=== PATIENT | male | born 1975 | race Caucasian/White ===

== ENCOUNTER 2017-07-28 12:36 | Emergency (ER) | payer OTHER ==
[~2017-07-28] VITALS: Ht 190.5 cm; Wt 130.9 kg
[2017-07-28 12:39] VITALS: BP 124/79; TEMP 97.8
[2017-07-28 14:45] LABS: BASO % 0.6 % (0.0-2.0); EOS % 0.8 % (0-4.0); GRAN # 1.8 (1.4-6.5); GRAN % 35.5 % (42.2-75.2); HEMOGLOBIN 14.3 g/dl (13.5-18.0); LYMPH # 2.1 (1.2-3.4); LYMPH % 42.9 % (20.0-51.0); MEAN CELL VOLUME 89 fl (80.0-100.0); MEAN CORPUSCULAR HEMOGLOBIN 30 pg (27.0-31.0); MEAN CORPUSCULAR HGB CONC 33 g/dl (33.0-37.0); MEAN PLATELET VOLUME 9.2 fl (7.4-10.4); PLATELET COUNT 259 K/mm3 (130-400); RED BLOOD COUNT 4.83 M/mm3 (4.20-5.60); REDCELL DISTRIBUTION WIDTH-CV 12.5 % (11.5-14.5)
[2017-07-28 14:47] LABS: INR 1.1 (0.8-3.0); PROTHROMBIN TIME 12.4 SECONDS (9.7-12.8)
[2017-07-28 14:57] LABS: ALANINE AMINOTRANSFERASE 53 U/L (21-72); ALBUMIN 4.1 gm/dL (3.5-5.0); ALKALINE PHOSPHATASE 69 U/L (50-136); ANION GAP 8 mmol/L (7-16); AST,SGOT 44 U/L (15-37); BILIRUBIN,TOTAL 0.3 mg/dL (0.0-1.0); BLOOD UREA NITROGEN 13 mg/dL (9-20); CALCIUM 9.1 mg/dL (8.4-10.2); CARBON DIOXIDE 27 mmol/L (22-30); CHLORIDE 103 mmol/L (98-107); CREATININE, serum 0.94 mg/dL (0.66-1.25); GLUCOSE 82 mg/dL (74-106); SODIUM 138 mmol/L (137-145); TOTAL PROTEIN 7.4 gm/dL (6.4-8.2)
[2017-07-28 15:00] VITALS: PULSE 74
[2017-07-28 15:10] LABS: TROPONIN-I < 0.012 ng/mL (0.000-0.034)
== END 2017-07-28 15:08 | disposition home or self-care (01) ==
LOC: COL.ER 12:36
PROVIDERS: Emergency Medicine
DX: R05 Cough (principal); R07.9 Chest pain, unspecified; R50.9 Fever, unspecified; R09.89 Other specified symptoms and signs involving the circulatory and respiratory systems; R06.02 Shortness of breath; Z86.711 Personal history of pulmonary embolism; I48.91 Unspecified atrial fibrillation; D68.2 Hereditary deficiency of other clotting factors
CPT/HCPCS: J7030; Q9967

== ENCOUNTER → 2017-07-28 | Outpatient (CLI) | payer OTHER | LOC: COL.LAB 10:12 | DX: J06.9 Acute upper respiratory infection, unspecified (principal); Z86.2 Personal history of diseases of the blood and blood-forming organs and certain disorders involving the immune mechanism ==

== ENCOUNTER → 2018-09-03 | Emergency (ER) | payer OTHER ==
[~2018-09-03] VITALS: Ht 190.5 cm; Wt 129.5 kg
[~2018-09-03] MED LIST: ASPIRIN 81M81 MG/TA2 PO; IBU800 M1 PO; LIORESAL 1010 MG/TAB PO; MULTI VITAMINS1 TAB PO; TIAZAC120 MG PO; TOPROL XL 25MG25 MG PO; XARELTO20 MG PO
[2018-09-03 00:19] VITALS: TEMP 97.8
[2018-09-03 00:50] LABS: PROTHROMBIN TIME 11.6 SECONDS (9.7-12.8)
[2018-09-03 00:51] LABS: ALANINE AMINOTRANSFERASE 55 U/L (21-72); ALBUMIN 4.4 gm/dL (3.5-5.0); ALKALINE PHOSPHATASE 77 U/L (50-136); ANION GAP 11 mmol/L (7-16); AST,SGOT 46 U/L (15-37); BILIRUBIN,TOTAL 0.5 mg/dL (0.0-1.0); BLOOD UREA NITROGEN 16 mg/dL (9-20); CALCIUM 9.9 mg/dL (8.4-10.2); CARBON DIOXIDE 27 mmol/L (22-30); CHLORIDE 100 mmol/L (98-107); CREATININE, serum 1.01 mg/dL (0.66-1.25); GLUCOSE 95 mg/dL (74-106); MAGNESIUM 1.8 mg/dL (1.6-2.3); POTASSIUM 3.7 mmol/L (3.4-5.0); SODIUM 138 mmol/L (137-145); TOTAL PROTEIN 7.9 gm/dL (6.4-8.2)
[2018-09-03 00:53] LABS: PARTIAL THROMBOPLASTIN TIME 29.7 SECONDS (26.0-37.0)
[2018-09-03 01:06] LABS: HEMATOCRIT 44.5 % (42.0-52.0); HEMOGLOBIN 14.8 g/dl (13.5-18.0); MEAN CELL VOLUME 90 fl (80.0-100.0); MEAN CORPUSCULAR HEMOGLOBIN 30 pg (27.0-31.0); MEAN CORPUSCULAR HGB CONC 33 g/dl (33.0-37.0); MEAN PLATELET VOLUME 9.2 fl (7.4-10.4); PLATELET COUNT 346 K/mm3 (130-400); RED BLOOD COUNT 4.94 M/mm3 (4.20-5.60); REDCELL DISTRIBUTION WIDTH-CV 12.8 % (11.5-14.5)
[2018-09-03 01:14] LABS: TROPONIN-I < 0.012 ng/mL (0.000-0.035)
[2018-09-03 01:20] LABS: EOSINOPHIL 3 % (0-4); LYMPHOCYTE 33 % (20.0-51.0); NEUTROPHILS 51 % (42.0-75.2); PLATELET ESTIMATE NORMAL (NORMAL)
[2018-09-03 03:25] VITALS: BP 104/79; PULSE 75
== END ==
LOC: COL.ER 00:16
PROVIDERS: Emergency Medicine
DX: I48.91 Unspecified atrial fibrillation (principal); Z86.711 Personal history of pulmonary embolism; Z86.718 Personal history of other venous thrombosis and embolism
CPT/HCPCS: J2704; J7030; Q9967

== ENCOUNTER 2018-09-14 23:20 | Emergency (ER) | payer OTHER ==
[~2018-09-14] VITALS: Ht 190.5 cm; Wt 129.5 kg
[~2018-09-14 23:20] MED LIST changes: -IBU800 M1 PO; -LIORESAL 1010 MG/TAB PO; -TIAZAC120 MG PO
[2018-09-14 23:29] VITALS: TEMP 97.6
[2018-09-15 00:14] LABS: BASO # 0.1 (0.0-0.2); BASO % 0.8 % (0.0-2.0); EOS # 0.4 (0.0-0.7); EOS % 3.7 % (0-4.0); GRAN # 5.1 (1.4-6.5); GRAN % 48.1 % (42.2-75.2); HEMATOCRIT 42.4 % (42.0-52.0); HEMOGLOBIN 14.3 g/dl (13.5-18.0); LYMPH # 3.7 (1.2-3.4); LYMPH % 34.8 % (20.0-51.0); MEAN CELL VOLUME 89 fl (80.0-100.0); MEAN CORPUSCULAR HEMOGLOBIN 30 pg (27.0-31.0); MEAN CORPUSCULAR HGB CONC 34 g/dl (33.0-37.0); MEAN PLATELET VOLUME 9.1 fl (7.4-10.4); MONO # 1.3 (0.1-0.6); MONO % 11.9 % (1.7-9.3); PLATELET COUNT 304 K/mm3 (130-400); RED BLOOD COUNT 4.77 M/mm3 (4.20-5.60); REDCELL DISTRIBUTION WIDTH-CV 12.7 % (11.5-14.5)
[2018-09-15] MEDS ORDERED: IBU800 M1 PO (00:16)
[2018-09-15] MEDS ORDERED: LIORESAL 1010 MG/TAB PO (00:18)
[2018-09-15 00:26] LABS: BILIRUBIN,TOTAL 0.1 mg/dL (0.0-1.0); CALCIUM 9.8 mg/dL (8.4-10.2); CREATININE, serum 0.92 mg/dL (0.66-1.25); POTASSIUM 3.7 mmol/L (3.4-5.0); TOTAL PROTEIN 7.4 gm/dL (6.4-8.2)
[2018-09-15 00:28] LABS: INR 2.5 (0.8-3.0); PROTHROMBIN TIME 27.9 SECONDS (9.7-12.8)
[2018-09-15] MEDS ORDERED: TIAZAC120 MG PO (00:58)
[2018-09-15 01:16] LABS: TSH w REFLEX 6.04 uIU/mL (0.465-4.680)
[2018-09-15 02:27] VITALS: BP 106/82; PULSE 92
== END 2018-09-15 02:31 | disposition home or self-care (01) ==
LOC: COL.ER 23:20
PROVIDERS: Emergency Medicine
DX: I48.0 Paroxysmal atrial fibrillation (principal)
CPT/HCPCS: J7030

== ENCOUNTER 2018-11-29 04:15 | Emergency (ER) | payer OTHER ==
[~2018-11-29] VITALS: Ht 190.5 cm; Wt 129.5 kg
[~2018-11-29 04:15] MED LIST changes: +IBU800 M1 PO; +LIORESAL 1010 MG/TAB PO; +TIAZAC120 MG PO
[2018-11-29 04:25] VITALS: TEMP 97.5
[2018-11-29] MEDS ORDERED: TOPROL XL 50MG50 MG PO (04:28)
[2018-11-29 04:33] LABS: HEMATOCRIT 46.5 % (42.0-52.0); HEMOGLOBIN 15.5 g/dl (13.5-18.0); MEAN CELL VOLUME 89 fl (80.0-100.0); MEAN CORPUSCULAR HEMOGLOBIN 30 pg (27.0-31.0); MEAN CORPUSCULAR HGB CONC 33 g/dl (33.0-37.0); MEAN PLATELET VOLUME 9.1 fl (7.4-10.4); PLATELET COUNT 349 K/mm3 (130-400); REDCELL DISTRIBUTION WIDTH-CV 12.5 % (11.5-14.5)
[2018-11-29 04:46] LABS: ALANINE AMINOTRANSFERASE 42 U/L (21-72); ALBUMIN 4.1 gm/dL (3.5-5.0); ALKALINE PHOSPHATASE 74 U/L (50-136); ANION GAP 11 mmol/L (7-16); AST,SGOT 39 U/L (15-37); BILIRUBIN,TOTAL 0.3 mg/dL (0.0-1.0); BLOOD UREA NITROGEN 20 mg/dL (9-20); CALCIUM 9.8 mg/dL (8.4-10.2); CARBON DIOXIDE 26 mmol/L (22-30); CHLORIDE 104 mmol/L (98-107); CREATININE, serum 1.07 (0.66-1.25); GLUCOSE 110 mg/dL (74-106); MAGNESIUM 1.8 mg/dL (1.6-2.3); POTASSIUM 4.1 mmol/L (3.4-5.0); SODIUM 141 mmol/L (137-145); TOTAL PROTEIN 7.6 gm/dL (6.4-8.2)
[2018-11-29 05:09] LABS: BAND 2 % (0-10); EOSINOPHIL 9 % (0-4); LYMPHOCYTE 41 % (20.0-51.0); NEUTROPHILS 39 % (42.0-75.2); PLATELET ESTIMATE NORMAL (NORMAL)
[2018-11-29 05:14] LABS: TROPONIN-I < 0.012 ng/mL (0.000-0.035)
[2018-11-29] MEDS ORDERED: CARDIZEM CD 12120 MG PO (05:36)
[2018-11-29 05:52] VITALS: BP 98/75; PULSE 75
== END 2018-11-29 05:55 | disposition home or self-care (01) ==
LOC: COL.ER 04:15
PROVIDERS: Emergency Medicine
DX: I48.2 Chronic atrial fibrillation (principal); Z79.82 Long term (current) use of aspirin
CPT/HCPCS: J7030

== ENCOUNTER 2019-01-13 05:39 | Emergency (ER) | payer OTHER ==
[~2019-01-13] VITALS: Ht 182.9 cm; Wt 131.8 kg
[~2019-01-13 05:39] MED LIST changes: +CARDIZEM CD 12120 MG PO; +TOPROL XL 50MG50 MG PO
[2019-01-13 05:57] VITALS: TEMP 97.6
[2019-01-13 06:17] LABS: BASO # 0.1 (0.0-0.2); BASO % 0.7 % (0.0-2.0); EOS # 0.3 (0.0-0.7); EOS % 3.2 % (0-4.0); GRAN # 4.2 (1.4-6.5); GRAN % 49.4 % (42.2-75.2); HEMATOCRIT 45.8 % (42.0-52.0); HEMOGLOBIN 15.5 g/dl (13.5-18.0); LYMPH # 2.8 (1.2-3.4); LYMPH % 33.3 % (20.0-51.0); MEAN CELL VOLUME 88 fl (80.0-100.0); MEAN CORPUSCULAR HEMOGLOBIN 30 pg (27.0-31.0); MEAN CORPUSCULAR HGB CONC 34 g/dl (33.0-37.0); MEAN PLATELET VOLUME 8.9 fl (7.4-10.4); MONO # 1.1 (0.1-0.6); MONO % 13.2 % (1.7-9.3); PLATELET COUNT 341 K/mm3 (130-400); RED BLOOD COUNT 5.22 M/mm3 (4.20-5.60); REDCELL DISTRIBUTION WIDTH-CV 12.7 % (11.5-14.5)
[2019-01-13 06:24] LABS: INR 1.4 (0.8-3.0)
[2019-01-13 06:28] LABS: ALANINE AMINOTRANSFERASE 32 U/L (21-72); ALBUMIN 4.1 gm/dL (3.5-5.0); ALKALINE PHOSPHATASE 75 U/L (50-136); ANION GAP 11 mmol/L (7-16); AST,SGOT 33 U/L (15-37); BILIRUBIN,TOTAL 0.5 mg/dL (0.0-1.0); BLOOD UREA NITROGEN 17 mg/dL (9-20); CALCIUM 9.9 mg/dL (8.4-10.2); CARBON DIOXIDE 23 mmol/L (22-30); CHLORIDE 107 mmol/L (98-107); CREATININE, serum 0.92 (0.66-1.25); GLUCOSE 96 mg/dL (74-106); SODIUM 140 mmol/L (137-145); TOTAL PROTEIN 7.6 gm/dL (6.4-8.2)
[2019-01-13 06:31] LABS: MAGNESIUM 1.9 mg/dL (1.6-2.3)
[2019-01-13 06:39] LABS: TROPONIN-I < 0.012 ng/mL (0.000-0.035)
[2019-01-13 07:06] VITALS: BP 112/96; PULSE 66
== END 2019-01-13 07:10 | disposition home or self-care (01) ==
LOC: COL.ER 05:39
PROVIDERS: Emergency Medicine
DX: I48.91 Unspecified atrial fibrillation (principal); D68.2 Hereditary deficiency of other clotting factors; Z86.711 Personal history of pulmonary embolism; Z79.01 Long term (current) use of anticoagulants
CPT/HCPCS: J7030

== ENCOUNTER 2019-02-12 22:46 | Emergency (ER) | payer OTHER ==
[~2019-02-12] VITALS: Ht 190.5 cm; Wt 131.8 kg
[2019-02-12 22:53] VITALS: TEMP 97.6
[2019-02-12 23:08] LABS: BASO # 0.1 (0.0-0.2); BASO % 0.8 % (0.0-2.0); EOS # 0.4 (0.0-0.7); EOS % 3.6 % (0-4.0); GRAN # 4.2 (1.4-6.5); GRAN % 42.1 % (42.2-75.2); HEMATOCRIT 44.1 % (42.0-52.0); HEMOGLOBIN 14.8 g/dl (13.5-18.0); LYMPH # 3.9 (1.2-3.4); LYMPH % 38.7 % (20.0-51.0); MEAN CELL VOLUME 89 fl (80.0-100.0); MEAN CORPUSCULAR HEMOGLOBIN 30 pg (27.0-31.0); MEAN CORPUSCULAR HGB CONC 34 g/dl (33.0-37.0); MEAN PLATELET VOLUME 9.2 fl (7.4-10.4); MONO # 1.4 (0.1-0.6); MONO % 14.5 % (1.7-9.3); PLATELET COUNT 292 K/mm3 (130-400); RED BLOOD COUNT 4.97 M/mm3 (4.20-5.60); REDCELL DISTRIBUTION WIDTH-CV 12.7 % (11.5-14.5)
[2019-02-12 23:13] LABS: INR 1.2 (0.8-3.0); PROTHROMBIN TIME 13.5 SECONDS (9.7-12.8)
[2019-02-12 23:16] LABS: PARTIAL THROMBOPLASTIN TIME 34.5 SECONDS (26.0-37.0)
[2019-02-12 23:18] LABS: ALANINE AMINOTRANSFERASE 32 U/L (21-72); ALBUMIN 4.4 gm/dL (3.5-5.0); ALKALINE PHOSPHATASE 76 U/L (50-136); ANION GAP 12 mmol/L (7-16); AST,SGOT 29 U/L (15-37); BILIRUBIN,TOTAL 0.4 mg/dL (0.0-1.0); BLOOD UREA NITROGEN 18 mg/dL (9-20); CALCIUM 10.1 mg/dL (8.4-10.2); CARBON DIOXIDE 26 mmol/L (22-30); CHLORIDE 104 mmol/L (98-107); CREATININE, serum 1.34 (0.66-1.25); GLUCOSE 87 mg/dL (74-106); MAGNESIUM 1.9 mg/dL (1.6-2.3); POTASSIUM 3.8 mmol/L (3.4-5.0); SODIUM 142 mmol/L (137-145); TOTAL PROTEIN 7.7 gm/dL (6.4-8.2)
[2019-02-12 23:32] LABS: TROPONIN-I < 0.012 ng/mL (0.000-0.035)
[2019-02-13 01:15] VITALS: BP 101/78; PULSE 88
== END 2019-02-13 01:15 | disposition home or self-care (01) ==
LOC: COL.ER 22:46
PROVIDERS: Emergency Medicine
DX: I48.2 Chronic atrial fibrillation (principal)
CPT/HCPCS: J7030

== ENCOUNTER → 2019-05-07 | Outpatient (CLI) | payer OTHER | LOC: COL.CARD 07:50 | DX: I48.0 Paroxysmal atrial fibrillation (principal) ==

== ENCOUNTER → 2019-07-20 | Outpatient (CLI) | payer OTHER | LOC: MHCPAIN 15:13 | DX: M47.817 Spondylosis without myelopathy or radiculopathy, lumbosacral region (principal); M53.3 Sacrococcygeal disorders, not elsewhere classified | CPT/HCPCS: G0463 ==

== ENCOUNTER → 2019-07-22 | Outpatient (CLI) | payer OTHER | LOC: MHCPAIN 10:52 | DX: M53.86 Other specified dorsopathies, lumbar region (principal); M54.5 Low back pain ==

== ENCOUNTER → 2019-08-04 | Outpatient (CLI) | payer OTHER | LOC: MHCPAIN 13:59 | DX: M47.817 Spondylosis without myelopathy or radiculopathy, lumbosacral region (principal); M53.3 Sacrococcygeal disorders, not elsewhere classified | CPT/HCPCS: G0463 ==

== ENCOUNTER → 2019-08-12 | Outpatient (CLI) | payer OTHER | LOC: MHCPAIN 12:57 | DX: M47.27 Other spondylosis with radiculopathy, lumbosacral region (principal) ==

== ENCOUNTER → 2019-08-18 | Outpatient (CLI) | payer OTHER | LOC: MHCPAIN 13:00 | DX: M47.817 Spondylosis without myelopathy or radiculopathy, lumbosacral region (principal); D68.51 Activated protein C resistance; I48.91 Unspecified atrial fibrillation | CPT/HCPCS: G0463 ==

== ENCOUNTER → 2019-09-16 | Outpatient (CLI) | payer OTHER | LOC: MHCPAIN 14:40 | DX: M54.5 Low back pain (principal) | CPT/HCPCS: J1100; J2250; J3010 ==

== ENCOUNTER → 2020-01-11 | Outpatient (CLI) | payer OTHER | LOC: MHCPAIN 08:52 | DX: M47.817 Spondylosis without myelopathy or radiculopathy, lumbosacral region (principal); M54.5 Low back pain; M53.3 Sacrococcygeal disorders, not elsewhere classified | CPT/HCPCS: G0463 ==

== ENCOUNTER → 2020-02-22 | Outpatient (CLI) | payer OTHER | LOC: COL.RAD 11:51 | DX: K76.89 Other specified diseases of liver (principal); N28.1 Cyst of kidney, acquired ==